=== PATIENT | male | born 2000 | race Caucasian/White ===

== ENCOUNTER 2020-01-06 14:09 | Emergency (ER) | payer BC ==
--- NOTE | 2020-01-06 14:38 | ED ---
Anxiety HPI - General Chief Complaint: Anxiety Stated Complaint: Panic Attacks Time Seen by Provider: 01/06/20 14:33 Source: patient Mode of arrival: ambulatory - History of Present Illness Initial Comments: Patient is a 19-year-old male with history of anxiety presenting to the emergency department with a chief complaint of anxiety. Mother states she was an emergency room in 2 days ago with a daughter who has been experiencing similar symptoms. Patient states his been having anxiety attacks daily over the last week. States he cannot identify to treat her at this time. Mother states they see a family counselor back in [place] and they're scheduled to go to [place] very soon with a can speak with the counselor again. Patient denies any suicidal thoughts or ideations. Denies any homicidal thoughts or ideations. Patient has no other complaints. - Related Data Allergies/Adverse Reactions: Allergies Allergy/AdvReac Type Severity Reaction Status Date / Time No Known Allergies Allergy Verified 01/06/20 14:14 Review of Systems ROS Statement: Those systems with pertinent positive or pertinent negative responses have been documented in the HPI. ROS Other: All systems not noted in ROS Statement are negative. Past Medical History Past Medical History: No Reported History History of Any Multi-Drug Resistant Organisms: None Reported Past Surgical History: No Surgical Hx Reported Past Psychological History: Anxiety Smoking Status: Current every day smoker Past Alcohol Use History: None Reported Past Drug Use History: Marijuana General Exam Limitations: no limitations General appearance: alert, in no apparent distress Head exam: Present: atraumatic, normocephalic, normal inspection Eye exam: Present: normal appearance, PERRL, EOMI Pupils: Present: normal accommodation ENT exam: Present: normal exam, normal oropharynx, mucous membranes moist. Absent: TM's normal bilaterally, normal external ear exam Neck exam: Present: normal inspection, full ROM Respiratory exam: Present: normal lung sounds bilaterally. Absent: respiratory distress, wheezes, rales Cardiovascular Exam: Present: regular rate, normal rhythm, normal heart sounds Extremities exam: Present: normal inspection, full ROM, normal capillary refill. Absent: tenderness Back exam: Present: normal inspection, full ROM. Absent: tenderness Neurological exam: Present: alert, oriented X3 Psychiatric exam: Present: normal affect, anxious Skin exam: Present: warm, dry, intact, normal color Course Vital Signs 01/06/20 14:12 Temperature 98.1 F Pulse Rate 70 Respiratory 18 Rate Blood Pressure 114/79 O2 Sat by Pulse 99 Oximetry Medical Decision Making - Medical Decision Making Patient is a 19-year-old male with history of anxiety presenting to the emergency department treatment of anxiety. Patient denies suicidal thoughts or ideations. Increased anxiety over the last week. EPS notified. EPS evaluated the patient and cleared for discharge. Safety plan discussed. Patient will be discharged with 6 tablets of 0.25 mg of Xanax. Return parameters were thoroughly discussed with mother and patient who are understanding and agreeable. Case discussed with physician. Disposition Clinical Impression: Acute anxiety Disposition: HOME SELF-CARE Condition: Stable Instructions (If sedation given, give patient instructions): Generalized Anxiety Disorder (ED) Additional Instructions: Follow-up with the family counselor. Return to emergency department if symptoms worsen. Is patient prescribed a controlled substance at d/c from ED?: No Referrals: None,Stated [Primary Care Provider] - 1-2 days Time of Disposition: 17:11
[2020-01-06 14:46] VITALS: BP 114/79; PULSE 70; RESP 18; TEMP 98.1
[2020-01-06] MEDS ORDERED: ALPRAZolam 0.25 MG TAB PO STA (15:24)
== END 2020-01-06 17:30 | disposition home or self-care (01) ==
LOC: EC 14:09
DX: F41.9 Anxiety disorder, unspecified (principal); F17.200 Nicotine dependence, unspecified, uncomplicated
CPT/HCPCS: 99283

== ENCOUNTER 2020-02-02 17:08 | Emergency (ER) | payer BC ==
[2020-02-02 17:17] VITALS: RESP 18; TEMP 97.9
[2020-02-02] MEDS ORDERED: LORazepam 2 MG/ML INJ IM STA (17:32)
--- NOTE | 2020-02-02 17:35 | ED ---
General Adult HPI - General Chief complaint: Anxiety Stated complaint: anxiety issues Time Seen by Provider: 02/02/20 17:18 Source: patient Mode of arrival: ambulatory Limitations: no limitations - History of Present Illness Initial comments: Dictation was produced using [employer] dictation software. please excuse any grammatical, word or spelling errors. This patient was cared for during a federal and state declared state of emergency secondary to Covid 19 Chief Complaint: 19-year-old male presents with anxiety. History of Present Illness: Patient is 19-year-old male has history of anxiety. Patient's regular marijuana abuser. He recently moved here from [place]. Patient states that he noted that he develop anxiety since moving to [place]. Patient states that ever since he began using the local cannabis products here he developed anxiety. Patient was seen here in emergency department recently for similar complaint. He has been reading several articles and is concerned about heavy metal toxicity. Says he only has anxiety he doesn't have any other symptoms. He is prescribed Klonopin for his anxiety which helps. The ROS documented in this emergency department record has been reviewed and confirmed by me. Those systems with pertinent positive or negative responses have been documented in the HPI. All other systems are other negative and/or noncontributory. PHYSICAL EXAM: General Impression: Alert and oriented x3, not in acute distress HEENT: Normocephalic atraumatic, extra-ocular movements intact, pupils equal and reactive to light bilaterally, mucous membranes moist. Cardiovascular: Heart regular rate and rhythm Chest: Able to complete full sentences, no retractions, no tachypnea Abdomen: abdomen soft, non-tender, non-distended, no organomegaly Musculoskeletal: Pulses present and equal in all extremities, no peripheral edema Motor: no focal deficits noted Neurological: CN II-XII grossly intact, no focal motor or sensory deficits noted Skin: Intact with no visualized rashes Psych: Normal affect and mood ED course: 19 y Old male presents with anxiety. He has concern for anxiety secondary to heavy metal toxicity from THC use. Signs upon arrival are within acceptable limits. Metabolic panel was obtained. CBC unremarkable. Magnesium level is negative. No anion gap acidosis. Patient clear for discharge. Patient reevaluated after administration of 1 mg of IM Ativan. Patient requests for a short refill for his Klonopin. Patient given referral to outpatient primary care physician for outpatient management of his symptoms. - Related Data Previous Rx's Medication Instructions Recorded ALPRAZolam [Xanax] 0.25 mg PO Q8HR PRN 3 Days #6 tab 01/06/20 clonazePAM [KlonoPIN] 0.5 mg PO DAILY PRN 5 Days #5 02/02/20 tablet Allergies Allergy/AdvReac Type Severity Reaction Status Date / Time No Known Allergies Allergy Verified 02/02/20 17:09 Review of Systems ROS Statement: Those systems with pertinent positive or pertinent negative responses have been documented in the HPI. ROS Other: All systems not noted in ROS Statement are negative. Past Medical History Past Medical History: No Reported History History of Any Multi-Drug Resistant Organisms: None Reported Past Surgical History: No Surgical Hx Reported Past Psychological History: Anxiety Smoking Status: Vaper Past Alcohol Use History: None Reported Past Drug Use History: Marijuana General Exam Limitations: no limitations Course Vital Signs 02/02/20 17:10 Temperature 97.9 F Pulse Rate 86 Respiratory 18 Rate Blood Pressure 132/85 O2 Sat by Pulse 99 Oximetry Medical Decision Making - Lab Data Result diagrams: 02/02/20 17:47 Lab Results 02/02/20 Range/Units 17:47 Sodium 141 (137-145) mmol/L Potassium 3.7 (3.5-5.1) mmol/L Chloride 105 (98-107) mmol/L Carbon Dioxide 27 (22-30) mmol/L Anion Gap 9 mmol/L BUN 9 (9-20) mg/dL Creatinine 0.81 (0.66-1.25) mg/dL Est GFR (CKD-EPI)AfAm >90 (>60 ml/min/1.73 sqM) Est GFR (CKD-EPI)NonAf >90 (>60 ml/min/1.73 sqM) Glucose 91 (74-99) mg/dL Calcium 9.4 (8.4-10.2) mg/dL Magnesium 2.1 (1.6-2.3) mg/dL Disposition Clinical Impression: Anxiety Disposition: HOME SELF-CARE Condition: Fair Instructions (If sedation given, give patient instructions): Generalized Anxiety Disorder (ED) Prescriptions: clonazePAM [KlonoPIN] 0.5 mg PO DAILY PRN 5 Days #5 tablet PRN Reason: Anxiety Is patient prescribed a controlled substance at d/c from ED?: Yes If prescribed controlled substance>3 days was MAPS reviewed?: Prescribed <3 Days Referrals: Maria Victoria Brink MD [STAFF PHYSICIAN] - 1-2 days Time of Disposition: 18:42
[2020-02-02 18:09] LABS: African American GFR (CKD) >90 (>60 ml/min/1.73 sqM); Anion Gap 9 mmol/L; Blood Urea Nitrogen 9 mg/dL (9-20); Calcium 9.4 mg/dL (8.4-10.2); Carbon Dioxide 27 mmol/L (22-30); Chloride 105 mmol/L (98-107); Glucose 91 mg/dL (74-99); Magnesium 2.1 mg/dL (1.6-2.3); Non-African American GFR(CKD) >90 (>60 ml/min/1.73 sqM); Potassium 3.7 mmol/L (3.5-5.1); Sodium 141 mmol/L (137-145)
[2020-02-02 18:59] VITALS: BP 128/80; PULSE 61
[2020-02-04 09:53] LABS: Iron 124 ug/dL (65-175)
== END 2020-02-02 18:59 | disposition home or self-care (01) ==
LOC: EC 17:08
DX: F41.9 Anxiety disorder, unspecified (principal); F17.290 Nicotine dependence, other tobacco product, uncomplicated
CPT/HCPCS: 36415; 80048; 83540; 83735; 96372; 99283; J2060

== ENCOUNTER 2020-02-06 09:46 | Emergency (ER) | payer BC ==
[2020-02-06 09:54] VITALS: RESP 18
[2020-02-06] MEDS ORDERED: diazePAM 5 MG TAB PO STA (10:11)
--- NOTE | 2020-02-06 10:15 | ED ---
General Adult HPI - General Chief complaint: Anxiety Stated complaint: anxiety Time Seen by Provider: 02/06/20 09:50 Source: patient, RN notes reviewed, old records reviewed Mode of arrival: ambulatory Limitations: no limitations - History of Present Illness Initial comments: This is a 19-year-old male who presents to the emergency department with a past medical history significant for anxiety. Patient has had breakthrough panic attacks. According to the mother respiratory distress and the family and over the last few months the patient had quite a few panic attacks. Patient took Klonopin this morning and he took at 8:30 in by the time he got here he was feeling slightly better. Patient states she did have some tingling around the mouth and in the fingertips. Patient states he has tried Xanax in the past and that usually works return and is also tried Ativan in the emergency department IV and that did not work for him either. Patient states the Klonopin normally works but today it didn't seem to be having as much affect is normal. Patient denies any physical complaints today. Patient denies any headache patient denies numbness weakness. Patient denies any fever chills or cough. Patient denies chest pain or difficulty breathing. Patient denies any nausea or vomiting. - Related Data Previous Rx's Medication Instructions Recorded clonazePAM [KlonoPIN] 0.5 mg PO DAILY PRN 5 Days #5 02/02/20 tablet Diazepam [Valium] 5 mg PO Q8H #10 tab 02/06/20 Allergies Allergy/AdvReac Type Severity Reaction Status Date / Time hydroxyzine AdvReac Hallucinati Verified 02/06/20 11:02 ons Review of Systems ROS Statement: Those systems with pertinent positive or pertinent negative responses have been documented in the HPI. ROS Other: All systems not noted in ROS Statement are negative. Past Medical History Past Medical History: No Reported History History of Any Multi-Drug Resistant Organisms: None Reported Past Surgical History: No Surgical Hx Reported Past Psychological History: Anxiety Smoking Status: Vaper Past Alcohol Use History: None Reported Past Drug Use History: Marijuana General Exam - General Exam Comments Initial Comments: GENERAL: Patient is well-developed and well-nourished. Patient is nontoxic and well- hydrated and is in no acute distress. ENT: Neck is soft and supple. No significant lymphadenopathy is noted. Oropharynx is clear. Moist mucous membranes. Neck has full range of motion without eliciting any pain. EYES: The sclera were anicteric and conjunctiva were pink and moist. Extraocular movements were intact and pupils were equal round and reactive to light. Eyelids were unremarkable. PULMONARY: Unlabored respirations. Good breath sounds bilaterally. No audible rales rhonchi or wheezing was noted. CARDIOVASCULAR: There is a regular rate and rhythm without any murmurs gallops or rubs. ABDOMEN: Soft and nontender with normal bowel sounds. SKIN: Skin is clear with no lesions or rashes and otherwise unremarkable. NEUROLOGIC: Patient is alert and oriented x3. Cranial nerves II through XII are grossly intact. Motor and sensory are also intact. Normal speech, volume and content. Symmetrical smile. MUSCULOSKELETAL: Normal extremities with adequate strength and full range of motion. LYMPHATICS: No significant lymphadenopathy is noted PSYCHIATRIC: Patient is extremely anxious Limitations: no limitations Course Vital Signs 02/06/20 02/06/20 09:49 11:11 Temperature 98.5 F 98.7 F Pulse Rate 97 83 Respiratory 18 18 Rate Blood Pressure 135/80 123/78 O2 Sat by Pulse 98 97 Oximetry Disposition Clinical Impression: Acute anxiety Disposition: HOME SELF-CARE Condition: Good Instructions (If sedation given, give patient instructions): Generalized Anxiety Disorder (ED) Prescriptions: Diazepam [Valium] 5 mg PO Q8H #10 tab Is patient prescribed a controlled substance at d/c from ED?: Yes When asked, does pt state using other controlled substances?: Yes If prescribed controlled substance>3 days was MAPS reviewed?: Prescribed <3 Days If opioid is for acute pain is fill amount 7 days or less?: Yes Referrals: None,Stated [Primary Care Provider] - 1-2 days Time of Disposition: 11:27
[2020-02-06 11:12] VITALS: BP 123/78; PULSE 83; TEMP 98.7
== END 2020-02-06 11:31 | disposition home or self-care (01) ==
LOC: EC 09:46
DX: F41.9 Anxiety disorder, unspecified (principal); F17.290 Nicotine dependence, other tobacco product, uncomplicated; Z88.8 Allergy status to other drugs, medicaments and biological substances
CPT/HCPCS: 99283